=== PATIENT | male | born 1955 | race Caucasian/White ===

== ENCOUNTER 2016-10-03 14:36 | Emergency (ER) | payer MEDICAID ==
[~2016-10-03] VITALS: Ht 177.8 cm; Wt 81.6 kg
[~2016-10-03 14:36] MED LIST: AMOXICILLIN500 M2 PO; AMOXICILLIN500 MG PO; ASPIRIN81 MG PO; BLOOD PRESSURE PILL; FLEXERIL10 MG PO; GOOD NEIGHBOR L10 MG PO; IBUPROFEN600 MG PO; LISINOPRIL10 M1 PO; LISINOPRIL10 MG PO; MOTRIN800 MG PO; NAPROSYN500 MG PO; PREDNISONE10 MG PO; PREDNISONE20 M1 PO; SILVADENE1% TP; VICODIN 5/500 505 MG PO; [UNRECOGNIZED DRUG - OTHER]
[2016-10-03] MEDS ORDERED: ANAPROX DS550 MG PO (14:51)
[2016-10-03] MEDS ORDERED: ROBAXIN500 M1 PO (14:51)
== END 2016-10-03 15:04 | disposition home or self-care (01) ==
LOC: ED 14:36
DX: S13.9XXA Sprain of joints and ligaments of unspecified parts of neck, initial encounter (principal); F17.200 Nicotine dependence, unspecified, uncomplicated; Z79.82 Long term (current) use of aspirin; Z79.899 Other long term (current) drug therapy; X58.XXXA Exposure to other specified factors, initial encounter; Y93.89 Activity, other specified; Y92.89 Other specified places as the place of occurrence of the external cause; Y99.8 Other external cause status

== ENCOUNTER 2017-04-17 09:39 | Emergency (ER) | payer MEDICAID ==
[~2017-04-17] VITALS: Ht 182.8 cm; Wt 97.1 kg
[~2017-04-17 09:39] MED LIST changes: +ANAPROX DS550 MG PO; +ROBAXIN500 M1 PO
[2017-04-17 10:24] LABS: BILIRUBIN NEGATIVE (NEGATIVE); BLOOD NEGATIVE (NEGATIVE); CLARITY CLEAR (CLEAR); COLOR YELLOW (YELLOW); GLUCOSE NEGATIVE (NEGATIVE); KETONE NEGATIVE (NEGATIVE); LEUKO ESTERASE NEGATIVE (NEGATIVE); NITRITE NEGATIVE (NEGATIVE)
[2017-04-17 10:25] LABS: HEMATOCRIT 46.6 % (42.0-52.0); HEMOGLOBIN 15.4 g/dl (14.0-18.0); MEAN CORPUSCULAR HGB 30.7 pg (27.0-31.0); MEAN PLATELET VOLUME 11.4 fl (9.6-12.3); PLATELET COUNT AUTOMATED 251 10*3/uL (130-400); RED BLOOD COUNT 5.01 10*6/uL (4.50-5.90); RED CELL DISTRI WIDTH 13.1 % (0-14.5); WHITE BLOOD COUNT 14.5 10*3/uL (4.8-10.8)
[2017-04-17 10:39] LABS: BACTERIA TRACE
[2017-04-17 10:42] LABS: PLATELET SUFFICIENCY NORMAL (NORMAL); TOTAL CELLS COUNTED 100 #CELLS
[2017-04-17 10:43] LABS: ALBUMIN 3.9 gm/dl (3.1-4.5); ALKALINE PHOSPHATASE 134 U/L (45-117); BUN 19 mg/dl (7-24); CHLORIDE 99 mmol/L (98-107); CREATININE 0.92 mg/dL (0.70-1.30); POTASSIUM 4.2 mmol/L (3.5-5.1); SGOT/AST 25 IU/L (3-35); SGPT/ALT 48 U/L (12-78); SODIUM 135 mmol/L (136-145); TOTAL PROTEIN 8.2 gm/dL (6.4-8.2)
== END 2017-04-17 11:39 | disposition home or self-care (01) ==
LOC: ED 09:39
PROVIDERS: Nurse Practitioner Family
DX: R60.0 Localized edema (principal); R03.0 Elevated blood-pressure reading, without diagnosis of hypertension; F17.200 Nicotine dependence, unspecified, uncomplicated; Z79.899 Other long term (current) drug therapy; Z79.02 Long term (current) use of antithrombotics/antiplatelets

== ENCOUNTER 2017-09-15 12:09 | Emergency (ER) | payer MEDICAID ==
[~2017-09-15] VITALS: Ht 182.8 cm; Wt 95.7 kg
[2017-09-15] MEDS ORDERED: MEDROL DOSEPAK4 MG PO (12:29)
== END 2017-09-15 12:38 | disposition home or self-care (01) ==
LOC: ED 12:09
DX: G56.02 Carpal tunnel syndrome, left upper limb (principal); Z79.82 Long term (current) use of aspirin

== ENCOUNTER 2017-10-26 14:37 | Emergency (ER) | payer MEDICAID ==
[~2017-10-26] VITALS: Wt 97.1 kg
[~2017-10-26 14:37] MED LIST changes: +MEDROL DOSEPAK4 MG PO
== END 2017-10-26 15:24 | disposition home or self-care (01) ==
LOC: ED 14:37
DX: M25.531 Pain in right wrist (principal); R06.2 Wheezing; R20.0 Anesthesia of skin; Z79.82 Long term (current) use of aspirin

== ENCOUNTER → 2017-12-02 | Outpatient (CLI) | payer MEDICAID ==
[~2017-12-02] MED LIST changes: +LIDEX 0.05% CRE15 GM T
== END ==
LOC: ORTHO 03:44
DX: G56.01 Carpal tunnel syndrome, right upper limb (principal)

== ENCOUNTER 2017-12-20 11:00 | Emergency (ER) | payer MEDICAID ==
[~2017-12-20] VITALS: Ht 182.8 cm; Wt 96.2 kg
--- NOTE | ~2017-12-20 | EKG ---
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
[~2017-12-20 11:00] MED LIST changes: -LIDEX 0.05% CRE15 GM T
[2017-12-20 11:47] LABS: BASO # 0.1 10*3/uL (0.0-0.1); BASO % 0.8 % (0.0-1.0); EOS # 0.2 10*3/uL (0.0-0.4); EOS % 1.9 % (1.0-4.0); HEMATOCRIT 44.7 % (42.0-52.0); HEMOGLOBIN 14.9 g/dl (14.0-18.0); LYMPH # 3.7 10*3/uL (1.3-4.4); LYMPH % 31.3 % (27.0-41.0); MEAN CELL VOLUME 92.7 fl (80.0-94.0); MEAN CORPUSCULAR HGB 30.9 pg (27.0-31.0); MEAN CORPUSCULAR HGB CONC 33.3 g/dl (33.0-37.0); MEAN PLATELET VOLUME 11.5 fl (9.6-12.3); MONO % 8.2 % (3.0-9.0); NEUT # 6.8 10*3/uL (2.3-7.9); NEUT % 57.3 % (47.0-73.0); PLATELET COUNT AUTOMATED 226 10*3/uL (130-400); RED BLOOD COUNT 4.82 10*6/uL (4.50-5.90); RED CELL DISTRI WIDTH 12.6 % (0-14.5); WHITE BLOOD COUNT 11.8 10*3/uL (4.8-10.8)
[2017-12-20 12:03] LABS: ALKALINE PHOSPHATASE 129 U/L (45-117); BUN 15 mg/dl (7-24); CHLORIDE 102 mmol/L (98-107); CREATININE 0.92 mg/dL (0.70-1.30); SGOT/AST 23 IU/L (3-35); SGPT/ALT 41 U/L (12-78); SODIUM 136 mmol/L (136-145); TOTAL PROTEIN 7.6 gm/dL (6.4-8.2)
[2017-12-20 12:08] LABS: TROPONIN I < 0.015 ng/ml (<0.045)
[2017-12-20] MEDS ORDERED: LIDEX 0.05% CRE15 GM T (12:13)
== END 2017-12-20 12:27 | disposition home or self-care (01) ==
LOC: ED 11:00
PROVIDERS: Nurse Practitioner Family
DX: M79.89 Other specified soft tissue disorders (principal); R03.0 Elevated blood-pressure reading, without diagnosis of hypertension; Z79.899 Other long term (current) drug therapy

== ENCOUNTER 2018-08-24 08:40 | Emergency (ER) | payer OTHER ==
[~2018-08-24] VITALS: Ht 182.8 cm; Wt 86.2 kg
--- NOTE | ~2018-08-24 | EKG ---
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: : 1955 Requested By: LUCRECIA JAY Order Number: [id number] Reading MD: Robby Martinez MD Measurements Intervals [place] Rate: 73 P: MS: QRS: 83 QRSD: 108 T: 83 QT: 392 QTc: 432 Interpretive Statements Accelerated junctional rhythm Borderline right axis deviation Probable anterolateral infarct, old Compared to ECG 12/20/2017 11:15:22 Accelerated junctional rhythm now present Sinus rhythm no longer present Myocardial infarct finding still present Electronically Signed On 08-25-2018 7:14:42 PDT by Robby Martinez MD CM:EKGRPT:ELECTROCARDIOGRAM REPORT [id number] LUCRECIA MENSAH DRAFT REPORT LUCRECIA JAY MD
[~2018-08-24 08:40] MED LIST changes: +LIDEX 0.05% CRE15 GM T
[2018-08-24 08:53] LABS: HEMATOCRIT 47.2 % (42.0-52.0); HEMOGLOBIN 16.1 g/dl (14.0-18.0); MEAN CELL VOLUME 93.1 fl (80.0-94.0); MEAN CORPUSCULAR HGB 31.8 pg (27.0-31.0); MEAN CORPUSCULAR HGB CONC 34.1 g/dl (33.0-37.0); MEAN PLATELET VOLUME 11.1 fl (9.6-12.3); PLATELET COUNT AUTOMATED 248 10*3/uL (130-400); RED BLOOD COUNT 5.07 10*6/uL (4.50-5.90); RED CELL DISTRI WIDTH 12.8 % (0-14.5); WHITE BLOOD COUNT 14.2 10*3/uL (4.8-10.8)
[2018-08-24 09:06] LABS: ACT PARTIAL THROMBO TIME 24.9 SECONDS (20.8-31.5)
[2018-08-24 09:11] LABS: BASOPHILS 1 % (0-1); TOTAL CELLS COUNTED 100 #CELLS
[2018-08-24 09:12] LABS: PLATELET SUFFICIENCY NORMAL (NORMAL)
[2018-08-24 09:18] LABS: ALBUMIN 3.7 gm/dl (3.1-4.5); ALKALINE PHOSPHATASE 122 U/L (45-117); BUN 25 mg/dl (7-24); CHLORIDE 100 mmol/L (98-107); CREATININE 1.08 mg/dL (0.70-1.30); POTASSIUM 3.8 mmol/L (3.5-5.1); SGOT/AST 23 IU/L (3-35); SGPT/ALT 37 U/L (12-78); SODIUM 135 mmol/L (136-145); TOTAL PROTEIN 7.4 gm/dL (6.4-8.2)
[2018-08-24 09:19] LABS: TROPONIN I < 0.015 ng/ml (<0.045)
== END 2018-08-24 10:14 | disposition left against medical advice (07) ==
LOC: ED 08:40
PROVIDERS: Emergency Medicine
DX: R07.89 Other chest pain (principal); R05 Cough; I10 Essential (primary) hypertension; E78.5 Hyperlipidemia, unspecified; F17.210 Nicotine dependence, cigarettes, uncomplicated; Z79.899 Other long term (current) drug therapy; Z79.82 Long term (current) use of aspirin

== ENCOUNTER → 2018-12-19 | Outpatient (CLI) | payer OTHER | END | disposition home or self-care (01) | LOC: CARD 01:52 | DX: I08.2 Rheumatic disorders of both aortic and tricuspid valves (principal) ==

== ENCOUNTER 2019-02-03 11:19 | Emergency (ER) | payer OTHER ==
[~2019-02-03] VITALS: Ht 182.8 cm; Wt 79.4 kg
[2019-02-03 11:45] LABS: HEMATOCRIT 44.6 % (42.0-52.0); HEMOGLOBIN 14.7 g/dl (14.0-18.0); MEAN CELL VOLUME 94.9 fl (80.0-94.0); MEAN CORPUSCULAR HGB 31.3 pg (27.0-31.0); MEAN PLATELET VOLUME 11.2 fl (9.6-12.3); PLATELET COUNT AUTOMATED 241 10*3/uL (130-400); WHITE BLOOD COUNT 12.7 10*3/uL (4.8-10.8)
[2019-02-03 12:04] LABS: ALBUMIN 3.9 gm/dl (3.1-4.5); ALKALINE PHOSPHATASE 84 U/L (45-117); BUN 17 mg/dl (7-24); CHLORIDE 103 mmol/L (98-107); CREATININE 0.88 mg/dL (0.70-1.30); POTASSIUM 4.3 mmol/L (3.5-5.1); SGOT/AST 27 IU/L (3-35); SGPT/ALT 54 U/L (12-78); SODIUM 137 mmol/L (136-145); TOTAL PROTEIN 7.2 gm/dL (6.4-8.2)
[2019-02-03 12:05] LABS: TROPONIN I < 0.015 ng/ml (<0.045)
[2019-02-03 12:08] LABS: PLATELET SUFFICIENCY NORMAL (NORMAL); TOTAL CELLS COUNTED 100 #CELLS
== END 2019-02-03 12:44 | disposition home or self-care (01) ==
LOC: ED 11:19
PROVIDERS: Emergency Medicine
DX: R60.0 Localized edema (principal); R26.2 Difficulty in walking, not elsewhere classified; Z79.899 Other long term (current) drug therapy; Z79.82 Long term (current) use of aspirin; X58.XXXA Exposure to other specified factors, initial encounter; Y93.01 Activity, walking, marching and hiking; Y92.89 Other specified places as the place of occurrence of the external cause; Y99.8 Other external cause status

== ENCOUNTER → 2019-03-05 | Outpatient (CLI) | payer OTHER ==
[2019-03-05 11:00] LABS: ALBUMIN 3.6 gm/dl (3.1-4.5); ALKALINE PHOSPHATASE 90 U/L (45-117); BUN 16 mg/dl (7-24); CHLORIDE 104 mmol/L (98-107); CHOLESTEROL 177 mg/dL (<200); CREATININE 0.85 mg/dL (0.70-1.30); HDL CHOLESTEROL 44 mg/dl (40-60); LDL CHOLESTEROL 102 mg/dL (9-159); POTASSIUM 3.7 mmol/L (3.5-5.1); SGOT/AST 24 IU/L (3-35); SGPT/ALT 42 U/L (12-78); SODIUM 138 mmol/L (136-145); TRIGLYCERIDES 154 mg/dl (<150); VLDL CHOLESTEROL 31 mg/dL (6-40)
== END | disposition home or self-care (01) ==
LOC: LAB 09:46
PROVIDERS: Registered Nurse Flight
DX: R73.03 Prediabetes (principal); E78.1 Pure hyperglyceridemia

== ENCOUNTER 2019-04-28 15:42 | Emergency (ER) | payer OTHER ==
[~2019-04-28] VITALS: Wt 81.6 kg
== END 2019-04-28 17:05 | disposition short-term general hospital (02) ==
LOC: ED 15:42
DX: T21.33XA Burn of third degree of upper back, initial encounter (principal); T22.30XA Burn of third degree of shoulder and upper limb, except wrist and hand, unspecified site, initial encounter; T20.30XA Burn of third degree of head, face, and neck, unspecified site, initial encounter; T21.31XA Burn of third degree of chest wall, initial encounter; T21.26XA Burn of second degree of male genital region, initial encounter; T75.09XA Other effects of lightning, initial encounter; T31 Burns classified according to extent of body surface involved; I10 Essential (primary) hypertension; E11.9 Type 2 diabetes mellitus without complications; F17.210 Nicotine dependence, cigarettes, uncomplicated; Z79.899 Other long term (current) drug therapy; Z79.82 Long term (current) use of aspirin; X08.8XXA Exposure to other specified smoke, fire and flames, initial encounter; Y93.89 Activity, other specified; Y92.89 Other specified places as the place of occurrence of the external cause; Y99.8 Other external cause status

== ENCOUNTER → 2019-09-05 | Outpatient (CLI) | payer OTHER ==
[2019-09-05 10:05] LABS: HEMATOCRIT 47.4 % (42.0-52.0); HEMOGLOBIN 14.5 g/dl (14.0-18.0); MEAN CELL VOLUME 86.2 fl (80.0-94.0); MEAN CORPUSCULAR HGB 26.4 pg (27.0-31.0); MEAN CORPUSCULAR HGB CONC 30.6 g/dl (33.0-37.0); MEAN PLATELET VOLUME 11.1 fl (9.6-12.3); RED BLOOD COUNT 5.5 10*6/uL (4.50-5.90); RED CELL DISTRI WIDTH 20.1 % (0-14.5); WHITE BLOOD COUNT 10.4 10*3/uL (4.8-10.8)
[2019-09-05 10:21] LABS: ALBUMIN 3.5 gm/dl (3.1-4.5); ALKALINE PHOSPHATASE 113 U/L (45-117); BUN 17 mg/dl (7-24); CHLORIDE 105 mmol/L (98-107); CHOLESTEROL 239 mg/dL (<200); CREATININE 0.62 mg/dL (0.70-1.30); HDL CHOLESTEROL 50 mg/dl (40-60); LDL CHOLESTEROL 138 mg/dL (9-159); POTASSIUM 3.9 mmol/L (3.5-5.1); SGOT/AST 18 IU/L (3-35); SGPT/ALT 27 U/L (12-78); SODIUM 138 mmol/L (136-145); TOTAL PROTEIN 7.4 gm/dL (6.4-8.2); TRIGLYCERIDES 254 mg/dl (<150); VLDL CHOLESTEROL 51 mg/dL (6-40)
== END | disposition home or self-care (01) ==
LOC: LAB 09:28
PROVIDERS: Registered Nurse Flight
DX: E11.9 Type 2 diabetes mellitus without complications (principal); E78.00 Pure hypercholesterolemia, unspecified

== ENCOUNTER → 2019-12-03 | Outpatient (CLI) | payer OTHER ==
[2019-12-03 09:51] LABS: CHLORIDE 104 mmol/L (98-107); POTASSIUM 4.1 mmol/L (3.5-5.1); SODIUM 138 mmol/L (136-145)
[2019-12-03 09:59] LABS: ALBUMIN 3.8 gm/dl (3.1-4.5); ALKALINE PHOSPHATASE 85 U/L (45-117); BUN 25 mg/dl (7-24); CHOLESTEROL 182 mg/dL (<200); CREATININE 0.85 mg/dL (0.70-1.30); HDL CHOLESTEROL 50 mg/dl (40-60); LDL CHOLESTEROL 95 mg/dL (9-159); SGOT/AST 14 IU/L (3-35); SGPT/ALT 31 U/L (12-78); TOTAL PROTEIN 7.8 gm/dL (6.4-8.2); TRIGLYCERIDES 186 mg/dl (<150); VLDL CHOLESTEROL 37 mg/dL (6-40)
== END | disposition home or self-care (01) ==
LOC: LAB 09:05
PROVIDERS: Registered Nurse Flight
DX: E11.9 Type 2 diabetes mellitus without complications (principal); E78.00 Pure hypercholesterolemia, unspecified

== ENCOUNTER 2020-03-22 12:35 | Emergency (ER) | payer OTHER ==
[~2020-03-22] VITALS: Ht 182.8 cm; Wt 82.1 kg
== END 2020-03-22 15:14 | disposition home or self-care (01) ==
LOC: ED 12:35
DX: L30.9 Dermatitis, unspecified (principal); I10 Essential (primary) hypertension; Z79.82 Long term (current) use of aspirin; Z79.899 Other long term (current) drug therapy

== ENCOUNTER 2020-12-12 10:42 | Emergency (ER) | payer OTHER ==
[~2020-12-12] VITALS: Ht 182.8 cm; Wt 92.1 kg
[2020-12-12] MEDS ORDERED: METHOCARBAMOL500 M1 PO (12:28)
[2020-12-12] MEDS ORDERED: HYDROCODONE-AC1 EAC1 PO (12:28)
== END 2020-12-12 12:25 | disposition home or self-care (01) ==
LOC: ED 10:42
DX: G89.29 Other chronic pain (principal); M54.2 Cervicalgia; Z94.5 Skin transplant status; Z79.82 Long term (current) use of aspirin; Z79.899 Other long term (current) drug therapy

== ENCOUNTER 2021-05-23 10:43 | Emergency (ER) | payer OTHER ==
[~2021-05-23] VITALS: Ht 177.8 cm; Wt 92.1 kg
[~2021-05-23 10:43] MED LIST changes: +HYDROCODONE-AC1 EAC1 PO; +METHOCARBAMOL500 M1 PO
== END 2021-05-23 12:18 | disposition left against medical advice (07) ==
LOC: ED 10:43
DX: Z53.21 Procedure and treatment not carried out due to patient leaving prior to being seen by health care provider (principal)

== ENCOUNTER → 2021-06-05 | Outpatient (CLI) | payer OTHER | END | disposition home or self-care (01) | LOC: COVID19 16:39 | PROVIDERS: ATTEND Internal Medicine | DX: Z20.822 Contact with and (suspected) exposure to COVID-19 (principal) ==

== ENCOUNTER 2024-02-28 08:56 | Emergency (ER) | payer OTHER ==
[~2024-02-28] VITALS: Ht 182.8 cm; Wt 89.2 kg
[2024-02-28] MEDS ORDERED: ZOLOFT50 MG PO (09:29)
[2024-02-28] MEDS ORDERED: FENOFIBRATE145 M1 PO (09:30)
[2024-02-28] MEDS ORDERED: METFORMIN HYDR500 MG PO (09:30)
[2024-02-28] MEDS ORDERED: LIPITOR40 MG PO (09:30)
[2024-02-28] MEDS ORDERED: ZETIA10 MG PO (09:31)
[2024-02-28] MEDS ORDERED: VITAMIN D350 MC2 GT (09:32)
[2024-02-28 10:40] LABS: BASO # 0.1 10*3/uL (0.0-0.1); BASO % 0.5 % (0.0-1.0); EOS # 0.1 10*3/uL (0.0-0.4); EOS % 0.5 % (1.0-4.0); HEMATOCRIT 43.8 % (42.0-52.0); LYMPH # 3.1 10*3/uL (1.3-4.4); LYMPH % 24.2 % (27.0-41.0); MEAN CELL VOLUME 94.4 fl (80.0-94.0); MEAN CORPUSCULAR HGB 30.4 pg (27.0-31.0); MEAN CORPUSCULAR HGB CONC 32.2 g/dl (33.0-37.0); MONO % 8.1 % (3.0-9.0); NEUT # 8.5 10*3/uL (2.3-7.9); NEUT % 66.3 % (47.0-73.0); PLATELET COUNT AUTOMATED 313 10*3/uL (130-400); RED BLOOD COUNT 4.64 10*6/uL (4.50-5.90); RED CELL DISTRI WIDTH 12.8 % (0-14.5); WHITE BLOOD COUNT 12.9 10*3/uL (4.8-10.8)
[2024-02-28 11:01] LABS: BUN 15 mg/dl (9-23); CHLORIDE 99 mmol/L (98-107); POTASSIUM 3.5 mmol/L (3.4-5.1)
[2024-02-28] MEDS ORDERED: Amoxicillin/Clavulanate Pota 875 MG TAB PO ONE (11:25)
[2024-02-28] MEDS ORDERED: AMOX-CLAV 875-1 EACH PO (11:26)
[2024-02-28] MEDS ORDERED: NAPROSYN500 MG PO (11:26)
== END 2024-02-28 11:42 | disposition home or self-care (01) ==
LOC: ED 08:56
PROVIDERS: Nurse Practitioner Family
DX: S80.02XA Contusion of left knee, initial encounter (principal); S80.212A Abrasion, left knee, initial encounter; L03.116 Cellulitis of left lower limb; I10 Essential (primary) hypertension; F32.A Depression, unspecified; E78.5 Hyperlipidemia, unspecified; E11.9 Type 2 diabetes mellitus without complications; W19.XXXA Unspecified fall, initial encounter; Y93.89 Activity, other specified; Y92.039 Unspecified place in apartment as the place of occurrence of the external cause; Y99.8 Other external cause status

== ENCOUNTER → 2024-06-08 | Outpatient (CLI) | payer OTHER ==
[~2024-06-08] MED LIST changes: +AMOX-CLAV 875-1 EACH PO; +FENOFIBRATE145 M1 PO; +LIPITOR40 MG PO; +METFORMIN HYDR500 MG PO; +VITAMIN D350 MC2 GT; +ZETIA10 MG PO; +ZOLOFT50 MG PO
[2024-06-08 12:22] LABS: BASO # 0.1 10*3/uL (0.0-0.1); BASO % 0.8 % (0.0-1.0); EOS # 0.3 10*3/uL (0.0-0.4); EOS % 3.2 % (1.0-4.0); HEMATOCRIT 43.2 % (42.0-52.0); MEAN CELL VOLUME 95.8 fl (80.0-94.0); MEAN CORPUSCULAR HGB CONC 32.4 g/dl (33.0-37.0); MONO # 0.6 10*3/uL (0.1-1.0); MONO % 7.2 % (3.0-9.0); NEUT # 4.3 10*3/uL (2.3-7.9); NEUT % 50.3 % (47.0-73.0); PLATELET COUNT AUTOMATED 222 10*3/uL (130-400); RED BLOOD COUNT 4.51 10*6/uL (4.50-5.90); RED CELL DISTRI WIDTH 13.1 % (0-14.5); WHITE BLOOD COUNT 8.5 10*3/uL (4.8-10.8)
[2024-06-08 13:07] LABS: ALKALINE PHOSPHATASE 63 U/L (46-116); BUN 16 mg/dl (9-23); CHLORIDE 103 mmol/L (98-107); CHOLESTEROL 218 mg/dL (<200); LDL CHOLESTEROL 133 mg/dL (9-159); POTASSIUM 4.3 mmol/L (3.4-5.1); SGPT/ALT 46 U/L (5-49); TOTAL PROTEIN 7.2 gm/dL (6.0-8.0); VITAMIN D, 25-HYDROXY 39.6 ng/mL (30-100)
== END | disposition home or self-care (01) ==
LOC: LAB 11:22
PROVIDERS: ATTEND Internal Medicine
DX: I10 Essential (primary) hypertension (principal); E11.65 Type 2 diabetes mellitus with hyperglycemia; E78.00 Pure hypercholesterolemia, unspecified

== ENCOUNTER 2024-09-01 17:30 | Emergency (ER) | payer OTHER ==
[~2024-09-01] VITALS: Wt 88.5 kg
[2024-09-01] MEDS ORDERED: Albuterol Sulf/Ipratropium 3 ML VIAL NEB ONE (18:25)
[2024-09-01] MEDS ORDERED: methylPREDNISolone sod succ 125 MG VIAL IV ONE (18:25)
[2024-09-01 18:36] LABS: BASO # 0.1 10*3/uL (0.0-0.1); BASO % 0.8 % (0.0-1.0); EOS # 0.2 10*3/uL (0.0-0.4); EOS % 1.7 % (1.0-4.0); HEMATOCRIT 43.6 % (42.0-52.0); MEAN CELL VOLUME 95.6 fl (80.0-94.0); MEAN CORPUSCULAR HGB 30.7 pg (27.0-31.0); MEAN CORPUSCULAR HGB CONC 32.1 g/dl (33.0-37.0); MEAN PLATELET VOLUME 11.4 fl (9.6-12.3); MONO # 0.9 10*3/uL (0.1-1.0); MONO % 8.2 % (3.0-9.0); NEUT # 7.4 10*3/uL (2.3-7.9); NEUT % 64.8 % (47.0-73.0); PLATELET COUNT AUTOMATED 269 10*3/uL (130-400); RED BLOOD COUNT 4.56 10*6/uL (4.50-5.90); WHITE BLOOD COUNT 11.4 10*3/uL (4.8-10.8)
[2024-09-01 19:00] LABS: ALKALINE PHOSPHATASE 68 U/L (46-116); BUN 21 mg/dl (9-23); CHLORIDE 102 mmol/L (98-107); LIPASE 33 U/L (12-53); POTASSIUM 3.7 mmol/L (3.4-5.1); SGPT/ALT 43 U/L (5-49); TOTAL PROTEIN 7.1 gm/dL (6.0-8.0)
[2024-09-01] MEDS ORDERED: MAGNESIUM SULFATE 50 ML IV ONE (19:10)
[2024-09-01] MEDS ORDERED: PREDNISONE20 M1 PO (22:35)
[2024-09-01] MEDS ORDERED: AVPAK AZITHROM250 M1 PO (22:35)
[2024-09-01] MEDS ORDERED: AZITHROMYCIN 250 MG TAB PO ONE (22:40)
== END 2024-09-01 22:51 | disposition home or self-care (01) ==
LOC: ED 17:30
PROVIDERS: Nurse Practitioner Family
DX: J44.1 Chronic obstructive pulmonary disease with (acute) exacerbation (principal); E11.65 Type 2 diabetes mellitus with hyperglycemia; E83.42 Hypomagnesemia; R10.84 Generalized abdominal pain; I10 Essential (primary) hypertension; Z79.82 Long term (current) use of aspirin; Z79.899 Other long term (current) drug therapy

== ENCOUNTER 2025-01-08 10:38 | Emergency (ER) | payer OTHER ==
[~2025-01-08] VITALS: Ht 182.8 cm; Wt 92.1 kg
[~2025-01-08 10:38] MED LIST changes: +AVPAK AZITHROM250 M1 PO
[2025-01-08] MEDS ORDERED: SODIUM CHLORIDE 0.9% 1,000 ML IV ONE (11:00)
[2025-01-08] MEDS ORDERED: Ondansetron Hydrochloride 4 MG/2 ML VIAL IV ONE (11:00)
[2025-01-08 11:26] LABS: BASO # 0.1 10*3/uL (0.0-0.1); BASO % 0.6 % (0.0-1.0); EOS # 0.1 10*3/uL (0.0-0.4); EOS % 1.0 % (1.0-4.0); MEAN CELL VOLUME 95.1 fl (80.0-94.0); MEAN CORPUSCULAR HGB 30.6 pg (27.0-31.0); MEAN PLATELET VOLUME 11.9 fl (9.6-12.3); MONO # 0.7 10*3/uL (0.1-1.0); MONO % 5.2 % (3.0-9.0); NEUT # 8.6 10*3/uL (2.3-7.9); NEUT % 68.1 % (47.0-73.0); NUCLEATED RED BLOOD CELL 0.0 % (0.0-0.0); NUCLEATED RED BLOOD CELL 0.0 10*3/uL (0.0-0.0); PLATELET COUNT AUTOMATED 252 10*3/uL (130-400); RED CELL DISTRI WIDTH 13.0 % (0-14.5)
[2025-01-08 11:45] LABS: BUN 21 mg/dl (9-23)
[2025-01-08] MEDS ORDERED: MELOXICAM15 MG PO (12:06)
== END 2025-01-08 12:24 | disposition home or self-care (01) ==
LOC: ED 10:38
PROVIDERS: Emergency Medicine
DX: R07.89 Other chest pain (principal); R10.9 Unspecified abdominal pain; K08.89 Other specified disorders of teeth and supporting structures

== ENCOUNTER → 2025-01-28 | Outpatient (CLI) | payer OTHER ==
[~2025-01-28] MED LIST changes: +MELOXICAM15 MG PO
== END | disposition home or self-care (01) ==
LOC: CARD 13:30
PROVIDERS: ATTEND Internal Medicine
DX: R07.9 Chest pain, unspecified (principal)

== ENCOUNTER 2025-02-07 10:32 | Emergency (ER) | payer OTHER ==
[~2025-02-07] VITALS: Ht 208.2 cm; Wt 99.8 kg
[2025-02-07] MEDS ORDERED: Albuterol Sulf/Ipratropium 3 ML VIAL NEB ONE (10:55)
[2025-02-07] MEDS ORDERED: ASPIRIN 325 MG ENTERIC COATED PO ONE (10:55)
[2025-02-07] MEDS ORDERED: NITROGLYCERIN 1 IN PACKET T ONE (10:55)
[2025-02-07 11:18] LABS: BASO # 0.1 10*3/uL (0.0-0.1); BASO % 0.7 % (0.0-1.0); EOS # 0.2 10*3/uL (0.0-0.4); EOS % 2.3 % (1.0-4.0); MEAN CELL VOLUME 95.1 fl (80.0-94.0); MEAN CORPUSCULAR HGB 30.1 pg (27.0-31.0); MEAN PLATELET VOLUME 11.6 fl (9.6-12.3); MONO # 0.8 10*3/uL (0.1-1.0); MONO % 7.9 % (3.0-9.0); NEUT # 6.3 10*3/uL (2.3-7.9); NEUT % 59.9 % (47.0-73.0); NUCLEATED RED BLOOD CELL 0.0 % (0.0-0.0); NUCLEATED RED BLOOD CELL 0.0 10*3/uL (0.0-0.0); PLATELET COUNT AUTOMATED 281 10*3/uL (130-400); RED CELL DISTRI WIDTH 13.2 % (0-14.5)
[2025-02-07 11:38] LABS: BUN 16 mg/dl (9-23); CPK 57 U/L (34-171); SGPT/ALT 44 U/L (5-49)
[2025-02-07] MEDS ORDERED: MAGNESIUM SULFATE 50 ML IV ONE (11:50)
[2025-02-07] MEDS ORDERED: Ondansetron4 MG PO (12:30)
[2025-02-07] MEDS ORDERED: REGLAN10 M1 PO (12:30)
[2025-02-07] MEDS ORDERED: PROTONIX40 MG PO (12:30)
== END 2025-02-07 14:19 | disposition home or self-care (01) ==
LOC: ED 10:32
PROVIDERS: Emergency Medicine
DX: K29.70 Gastritis, unspecified, without bleeding (principal); R06.2 Wheezing; E11.9 Type 2 diabetes mellitus without complications; J44.9 Chronic obstructive pulmonary disease, unspecified; I10 Essential (primary) hypertension; E78.5 Hyperlipidemia, unspecified; F17.200 Nicotine dependence, unspecified, uncomplicated; Z79.899 Other long term (current) drug therapy; Z79.82 Long term (current) use of aspirin; Z79.84 Long term (current) use of oral hypoglycemic drugs